=== PATIENT | female | born 1950 | race Caucasian/White ===

== ENCOUNTER 2021-05-30 07:55 | Emergency (ER) | payer MEDICARE, BC, SELFPAY ==
[2021-05-30 07:59] VITALS: BP 117/75; PULSE 78; RESP 16; TEMP 36.5; O2SAT 100
--- NOTE | 2021-05-30 08:04 | ED.GENADUL_ITS ---
Discharge Plan Disposition Patient Disposition: HOME Condition: Stable Discharge Details Clinical Impression: Tick bite Primary Care Provider: Amelia,Local ED Provider: Cortez Gale Home Meds and New Rx's Prescriptions: Continued estradiol 0.5 mg Tablet 0.5 mg PO DAILY RF: 0 cholecalciferol (vitamin D3) [Vitamin D3] 10 mcg (400 unit) Tablet 10 mcg PO DAILY RF: 0 Discharge Instructions Additional Instructions: You were given a prophylactic dose of doxycycline if you develop fevers, pain, joint pain or feel more ill return to the emergency department Medical Decision Making 70 yo female comes in after she pulled a tick off her armpit yesterday, denies any fevers, rash or pain. Feels well without body aches or joint pain. In her right axilla she has mild erythema thats about 1cm in diameter and not tender or warm, and there was a head of a tick still attached that I removed. She is not sure how long it was there for. Given she is unsure how long it was there for will give prophylactic dose of doxy and d/c, return precautions given Differential Diagnosis Differential Diagnosis: tick bite, abrasion HPI General Mode of arrival: ambulatory . Date/Time Provider Initiated Documentation: 05/30/21 07:58 . Limitations to Documentation: no limitations . Information obtained by: patient . History of Present Illness 70 year old F presents to the emergency department with the chief complaint of tick bite, described as moderate, Patient reports no radiation. Patient started experiencing this day(s) (1) and it has been constant. No relieving factors improve symptom(s), No exacerbating factors reported . Patient notes no other symptoms.. Patient did receive the following treatments prior to arrival, none Related Data Home Medications Medication Instructions Recorded Confirmed cholecalciferol (vitamin D3) 10 mcg PO DAILY 05/30/21 05/30/21 [Vitamin D3] estradiol 0.5 mg PO DAILY 05/30/21 05/30/21 Allergies Allergy/AdvReac Type Severity Reaction Status Date / Time No Known Allergies Allergy Unverified 05/30/21 08:02 General Stated Complaint: Cellulitis SUDARSHAN: 4 Review of Systems All systems reviewed & are unremarkable except as noted in HPI and below Constitutional Constitutional: Denies chills, Denies fever(s) and Denies weakness Cardiovascular Cardiovascular: Denies chest pain and Denies dyspnea Respiratory Respiratory: Denies cough and Denies dyspnea Gastrointestinal Gastrointestinal: Denies abdominal pain, Denies nausea and Denies vomiting Musculoskeletal Musculoskeletal: Denies joint swelling Neurologic Neurologic: Denies weakness PFSH Social History Smoking/Tobacco Use Status: Never Smoking risk assessment performed?: Yes Alcohol Intake: current Alcohol Intake frequency: holidays/special occasions only Drug use: Never Substance use type: does not use Do you feel safe at home: Yes Do you feel safe in your relationship?: Yes Exam Const General: no acute distress Orientation: alert HENMT Head: normal to inspection Ears: external ears normal General nose exam: external nose normal Mouth: moist mucous membranes Eyes General: appearance normal, both eyes and all related structures Neck Neck: normal visual inspection Resp Effort & Inspection: normal respiratory effort and able to speak in complete sentences Cardio Rate: regular rate Neuro General: patient alert and patient oriented x3 Extrem General: normal to inspection Psych Mental Status: mental status grossly normal Course Vital Signs Vital signs: Vital Signs Temperature 36.5 C 05/30/21 07:59 Pulse 78 05/30/21 07:59 Respiratory Rate 16 05/30/21 07:59 Blood Pressure 117/75 05/30/21 07:59 Pulse Oximetry 100 05/30/21 07:59 Temperature 36.5 C 05/30/21 07:59 Temperature Source Tympanic 05/30/21 07:59 Pulse 78 05/30/21 07:59 Respiratory Rate 16 05/30/21 07:59 Blood Pressure 117/75 05/30/21 07:59 Blood Pressure Position Sitting 05/30/21 07:59 Pulse Oximetry 100 05/30/21 07:59 Oxygen Delivery Method Room Air 05/30/21 07:59 Oxygen Flow Rate 0 05/30/21 07:59 Pain Level 0 05/30/21 07:59
[2021-05-30] MEDS: Doxycycline Hyclate 100 MG CAP 200 MG PO (08:19)
== END 2021-05-30 08:24 | disposition home or self-care (01) ==
PROVIDERS: Emergency Provider Emergency Medicine
DX: S40.861A Insect bite (nonvenomous) of right upper arm, initial encounter (principal); W57.XXXA Bitten or stung by nonvenomous insect and other nonvenomous arthropods, initial encounter
CPT/HCPCS: 99283